=== PATIENT | male | born 1955 | race Caucasian/White ===

== ENCOUNTER 2017-02-11 22:18 | Emergency (ER) | payer BC ==
[2017-02-11 15:39] LABS: WBC (NOT ORDERED) (RFLEX) 0 (0-5)
[2017-02-11 15:42] LABS: BASOPHILS 0.1 %; BASOPHILS ABSOLUTE 0.01 10/3/uL (0.0-0.16); EOSINOPHILS 1.6 %; EOSINOPHILS ABSOLUTE 0.18 10/3/uL (0.0-0.53); ER CBC TAT 0 Hrs 09 Mins; HEMATOCRIT 46.8 % (40.0-51.0); HEMOGLOBIN 15.5 g/dL (13.6-17.8); IMMATURE GRANULOCYTES 0.3 %; IMMATURE GRANULOCYTES ABSOLUTE 0.03 10/3/uL (0.0-0.11); LYMPHOCYTES 10.3 %; LYMPHOCYTES ABSOLUTE 1.14 10/3/uL (0.67-4.30); MANUAL DIFF NO %; MEAN CORPUS HGB CONC 33.1 g/dL (32.0-36.0); MEAN CORPUSCULAR HEMOGLOB 29.6 pg (26.0-34.0); MEAN CORPUSCULAR VOLUME 89.5 fL (80-100); MEAN PLATELET VOLUME 12.2 fL (9.2-13.0); MONOCYTES 5.2 %; MONOCYTES ABSOLUTE 0.57 10/3/uL (0.21-1.20); NEUTROPHILS 82.5 %; NEUTROPHILS ABSOLUTE 9.11 10/3/uL (2.02-8.40); PLATELET COUNT 160 10/3/uL (150-400); RBC DISTRIBUTION WIDTH 13.5 % (12.0-16.0); RED CELL COUNT 5.23 10/6/uL (4.7-6.1)
[2017-02-11 15:48] LABS: ASCORBIC ACID (UR NOT ORDER) NEG (NEG); BILIRUBIN, URINE NEGATIVE (NEG); ER URINALYSIS TAT 0 Hrs 10 Mins; KETONE, URINE 20 MG/DL (NEG); LEUKOCYTE ESTERASE(NOT OR NEG (NEG); NITRITE (URINE) NEG (NEG)
[2017-02-11 16:04] LABS: A/G RATIO 1.2 (0.7-1.9); ALBUMIN 4.1 G/DL (3.5-5.0); ALKALINE PHOSPHATASE 92 U/L (45-117); BUN (BLOOD UREA NITROGEN) 11 MG/DL (6-23); CALCIUM, SERUM 8.9 MG/DL (8.5-10.4); CHLORIDE, SERUM 108 MMOL/L (96-112); CO2 (CARBON DIOXIDE) 31 MMOL/L (24-34); CREATININE 1.08 MG/DL (0.70-1.30); GFR AFRICAN AMERICAN 87 ML/MIN (>=60); GFR NON AFRICAN AMERICAN 75 ML/MIN (>=60); GLOBULIN 3.3 G/DL (2.5-4.1); GLUCOSE, SERUM 94 MG/DL (60-99); POTASSIUM, SERUM 3.9 MMOL/L (3.5-5.3); SGOT(AST) 16 U/L (5-40); SGPT(ALT) 22 U/L (5-65); SODIUM, SERUM 144 MMOL/L (135-148); TOTAL BILIRUBIN 1.1 MG/DL (0-1.2); TOTAL PROTEIN 7.4 G/DL (6.0-8.5)
[2017-02-11 22:12] LABS: DIRECT BILIRUBIN 0.2 MG/DL (0.0-0.4); INDIRECT BILIRUBIN(NOT ORDER) 0.9 MG/DL (0.1-0.9); TROPONIN I <0.02 NG/ML (<0.05)
[~2017-02-11 22:18] MED LIST: ALLEGRA180 PO; LISINOPRIL40 MG PO; MULTIVIT/MIN PO; ZOCOR20 PO
== END 2017-02-12 00:30 | disposition home or self-care (01) ==
LOC: ER 22:18
PROVIDERS: Emergency Medicine
DX: K44.9 Diaphragmatic hernia without obstruction or gangrene (principal); I10 Essential (primary) hypertension; K21.9 Gastro-esophageal reflux disease without esophagitis; Z87.442 Personal history of urinary calculi; Z79.899 Other long term (current) drug therapy
CPT/HCPCS: 74022; 80053; 81001; 82248; 83690; 84484; 85025; 96374; 99285; J2405

== ENCOUNTER 2017-02-18 06:17 | Day surgery (SDC) | payer BC ==
[2017-02-11 09:43] LABS: BASOPHILS 0.3 %; BASOPHILS ABSOLUTE 0.02 10/3/uL (0.0-0.16); EOSINOPHILS 4.6 %; EOSINOPHILS ABSOLUTE 0.32 10/3/uL (0.0-0.53); HEMATOCRIT 45.1 % (40.0-51.0); HEMOGLOBIN 14.7 g/dL (13.6-17.8); IMMATURE GRANULOCYTES 0.6 %; IMMATURE GRANULOCYTES ABSOLUTE 0.04 10/3/uL (0.0-0.11); LYMPHOCYTES 22.8 %; LYMPHOCYTES ABSOLUTE 1.58 10/3/uL (0.67-4.30); MEAN CORPUSCULAR HEMOGLOB 29.1 pg (26.0-34.0); MEAN CORPUSCULAR VOLUME 89.3 fL (80-100); MEAN PLATELET VOLUME 12.1 fL (9.2-13.0); MONOCYTES 7.8 %; MONOCYTES ABSOLUTE 0.54 10/3/uL (0.21-1.20); NEUTROPHILS 63.9 %; NEUTROPHILS ABSOLUTE 4.43 10/3/uL (2.02-8.40); PLATELET COUNT 158 10/3/uL (150-400); RBC DISTRIBUTION WIDTH 13.6 % (12.0-16.0); RED CELL COUNT 5.05 10/6/uL (4.7-6.1)
[2017-02-11 09:44] LABS: MANUAL DIFF NO %; MEAN CORPUS HGB CONC 32.6 g/dL (32.0-36.0); WHITE BLOOD CELLS 6.9 10/3/uL (4.5-10.5)
[2017-02-11 09:48] LABS: ASCORBIC ACID (UR NOT ORDER) NEG (NEG); BILIRUBIN, URINE NEGATIVE (NEG); KETONE, URINE NEGATIVE (NEG); LEUKOCYTE ESTERASE(NOT OR NEG (NEG); WBC (NOT ORDERED) (RFLEX) 1 (0-5)
[2017-02-11 09:57] LABS: INTERNATIONAL NORMAL RATI 1.1 UNITS (-); PARTIAL THROMBO TIME 30.6 SEC (22.5-37.2); PROTIME (NOT ORD) 14.1 SEC (12.0-14.5)
[2017-02-11 10:07] LABS: A/G RATIO 1.4 (0.7-1.9); ALBUMIN 3.8 G/DL (3.5-5.0); ALKALINE PHOSPHATASE 87 U/L (45-117); CALCIUM, SERUM 8.5 MG/DL (8.5-10.4); CHLORIDE, SERUM 108 MMOL/L (96-112); CHOL/HDL RATIO(NOT ORDER) 2.4 (0-5); CHOLESTEROL 122 MG/DL (< 200); GLOBULIN 2.8 G/DL (2.5-4.1); HDL CHOLESTEROL 50 MG/DL (> 39); LDL CHOLESTEROL 61 MG/DL (< 130); NON-HDL CHOLESTEROL 72 MG/DL (< 160); POTASSIUM, SERUM 4.1 MMOL/L (3.5-5.3); SGOT(AST) 16 U/L (5-40); SGPT(ALT) 25 U/L (5-65); TOTAL BILIRUBIN 0.8 MG/DL (0-1.2); TOTAL PROTEIN 6.6 G/DL (6.0-8.5); TRIGLYCERIDE 59 MG/DL (< 150)
[2017-02-11 10:11] LABS: CO2 (CARBON DIOXIDE) 32 MMOL/L (24-34); SODIUM, SERUM 146 MMOL/L (135-148)
[2017-02-11 10:12] LABS: BUN (BLOOD UREA NITROGEN) 11 MG/DL (6-23); CREATININE 1.07 MG/DL (0.70-1.30); GFR AFRICAN AMERICAN 88 ML/MIN (>=60); GFR NON AFRICAN AMERICAN 76 ML/MIN (>=60); GLUCOSE, SERUM 92 MG/DL (60-99)
--- NOTE | ~2017-02-18 | OP ---
Record Of Operation [facility] [address] [place]. [address] NAME: DARLENE PETERSON III : 59 [place]US : [place] [facility] [place] PAT#: [id number] AGE: 61 ADM/REG DATE : 02/18/17 MR#: [id number] REPORT SERV DATE: 02/18/17 DICTATED BY: WALDO CHRISTIANSON DATE: 02/18/17 REPORT STATUS : Draft TRANSCRIBED BY: JESSICA DATE: 02/18/17 DATE OF PROCEDURE: PREOPERATIVE DIAGNOSIS: Significant band intolerance with a band slippage. POSTOPERATIVE DIAGNOSIS: Significant band intolerance with a band slippage. OPERATION: Laparoscopic gastric band removal. SURGEON: Waldo Christianson M.D. ANESTHESIA: General endotracheal. COMPLICATION: None. INDICATION OF THE OPERATION: This is a 61-year-old white male, who is status post a Realize gastric band placed in 2007 with a starting weight of 335 pounds with a BMI of 50.2, and now his BMI is 36.9 and a weight of 246 pounds, so he has managed to lose close to 90 pounds. He has developed significant intolerance and a band slippage and at this point, band explantation is considered. DESCRIPTION OF OPERATION: The patient was taken to the operating room. After adequate anesthesia, was prepped and draped in a sterile manner. First we made an incision on top of the access port. I carefully went all the way down to the subcutaneous tissue with cautery. I removed the encapsulation tissue around the port. We did separate the access port. This is a realize access port that was attached with the hooks to the fascia. We were able to separate it with the cautery each hook until we completely the port. Then we transected the tubing and then we put a total of 5 trocars in the upper abdomen and carefully we the left lobe of the liver. There were a lot of adhesions in the upper portion of the stomach. We were able to follow the tubing and removed the connector that became deattached from the access port to the tubing, then followed the tubing and then removed all the adhesions around the buckle and proceeded to mobilize the band and then transected the band and remove it out of the tunnel and then the band was removed out of the abdomen through one of the trocar site incisions. After that we looked very carefully and there was no evidence of any obvious injury. The stomach looked fine. The encapsulation tissue was significant and this band would have tried to reposition, it would have been very difficult as this scar tissue was very dense and intense on the top portion of the stomach. So at this point, band explantation was the only consideration here. The band was removed with no problems. Removed all the trocars and liver retractor under direct visualization and then closed the subcutaneous tissue on the place which had the previous access port with a Vicryl through an uninterrupted fashion and then closed the skin and all incisions with subcuticular Monocryl. The patient tolerated the procedure well without having any problems. Record Of Operation [address] [place]. [address] NAME: DARLENE PETERSON III : 59 [place]US : [place] [facility] [place]#: [id number] AGE: 61 ADM/REG DATE : 02/18/17 MR#: [id number] REPORT SERV DATE: 02/18/17 DICTATED BY: WALDO CHRISTIANSON DATE: 02/18/17 REPORT STATUS : Draft TRANSCRIBED BY: JESSICA DATE: 02/18/17 HARSHIL/JESSICA Waldo Merida M.D. / [id number] CC: Yoni Cruz M.D.
== END 2017-02-18 14:02 | disposition home or self-care (01) ==
LOC: SDC 06:17
PROVIDERS: Surgery
PROC: 0DP64CZ Removal of Extraluminal Device from Stomach, Percutaneous Endoscopic Approach (ICD-10-PCS; principal; 2017-02-18 07:45)
DX: K95.09 Other complications of gastric band procedure (principal); I10 Essential (primary) hypertension; E78.00 Pure hypercholesterolemia, unspecified; G47.30 Sleep apnea, unspecified; K57.90 Diverticulosis of intestine, part unspecified, without perforation or abscess without bleeding; Z85.828 Personal history of other malignant neoplasm of skin; Z87.442 Personal history of urinary calculi; Z90.89 Acquired absence of other organs; Z98.890 Other specified postprocedural states; Z79.899 Other long term (current) drug therapy
CPT/HCPCS: 74246; 80053; 80061; 81001; 85025; 85610; 85730; 93005; A9270-GY; J0360; J0690; J2250; J2405; J2710; J3010